=== PATIENT | female | born 1950 | race Caucasian/White ===

== ENCOUNTER 2017-10-03 11:23 | Inpatient (IN) | payer OTHER ==
[2017-10-03 12:54] LABS: ALANINE AMINOTRANSFERASE 21 IU/L (13-69); ALBUMIN 4.5 g/dl (3.3-4.9); ALBUMIN/GLOBULIN RATIO 1.12; ALKALINE PHOSPHATASE 127 IU/L (42-121); ANION GAP 21 (8-16); ASPARTATE AMINO TRANSFERASE 22 IU/L (15-46); BILIRUBIN,INDIRECT 0.2 mg/dl (0-1.1); BILIRUBIN,TOTAL 0.2 mg/dl (0.2-1.3); BLOOD UREA NITROGEN 34 mg/dl (7-20); CALCIUM 10.6 mg/dl (8.4-10.2); CARBON DIOXIDE 20 mmol/L (21-31); CHLORIDE 108 mmol/L (97-110); CREATININE 1.59 mg/dl (0.44-1.00); GLUCOSE 79 mg/dl (70-220); POTASSIUM 4.7 mmol/L (3.5-5.1); SODIUM 144 mmol/L (135-144); TOTAL PROTEIN 8.5 g/dl (6.1-8.1)
[2017-10-03] MEDS ORDERED: SUCCINYLCHOLINE CHLORIDE 100 MG/5 ML SYG IV (14:05)
[2017-10-03] MEDS ORDERED: GLYCOPYRROLATE 0.4 MG INJ ×2 (14:05→19:32)
[2017-10-03] MEDS ORDERED: LIDOCAINE 2% (SDV) 5 ML INJ (14:05)
[2017-10-03] MEDS ORDERED: PROPOFOL 20 ML (14:05)
[2017-10-03] MEDS ORDERED: NEOSTIGMINE 3 MG/3 ML SYRINGE (14:05)
[2017-10-03] MEDS ORDERED: ROCURONIUM 50 MG INJ ×2 (14:05→17:42)
[2017-10-03] MEDS ORDERED: MEPERIDINE 100 MG INJ (14:05)
[2017-10-03] MEDS ORDERED: CEFAZOLIN 1 GM INJ (15:55)
[2017-10-03] MEDS: POLYMYXIN/BACITRACIN 1L IRRIG (16:07)
[2017-10-03] MEDS ORDERED: METOCLOPRAMIDE 10 MG INJ (18:47)
[2017-10-03] MEDS ORDERED: ONDANSETRON 4 MG INJ ×2 (18:47→20:56)
[2017-10-03] MEDS ORDERED: EPHEDrine SULFATE 50 MG/5 ML SYG (20:14)
[2017-10-03] MEDS ORDERED: FENTAnyl 50 MCG/ML VIAL (20:56)
[2017-10-03] MEDS ORDERED: EPHEDrine SULFATE 50 MG/5 ML SYG IV (21:00)
[2017-10-03] MEDS ORDERED: HYDROmorphONE (0.2 MG/ML) 10ML SYG IV ×2 (21:00)
[2017-10-03] MEDS ORDERED: hydrALAzine 20 MG INJ IV (21:00)
[2017-10-03] MEDS ORDERED: OXYCODONE/ACETAMINOPHEN (5/325) TAB PO ×2 (21:00)
[2017-10-03] MEDS ORDERED: DIPHENHYDRAMINE 50 MG INJ IV (21:00)
[2017-10-03] MEDS ORDERED: FENTAnyl 50 MCG/ML VIAL IV ×2 (21:00)
[2017-10-03] MEDS ORDERED: MEPERIDINE 25 MG INJ IV (21:00)
[2017-10-03] MEDS ORDERED: MIDAZOLAM 1 MG/ML 2 ML INJ IV (21:00)
[2017-10-03] MEDS ORDERED: METOCLOPRAMIDE 10 MG INJ IV (21:00)
[2017-10-03] MEDS ORDERED: LABETALOL HCL 20MG INJ IV (21:00)
[2017-10-03] MEDS: FENTAnyl 50 MCG/ML VIAL IV ×2 (21:01→21:06)
[2017-10-03] MEDS: ONDANSETRON 4 MG INJ IV (21:01)
[2017-10-03] MEDS: HYDROmorphONE (0.2 MG/ML) 10ML SYG IV ×5 (21:06→22:09)
[2017-10-03 21:20] LABS: ADD MAN DIFF? NO
[2017-10-03 21:24] LABS: WHITE BLOOD COUNT 9.8 10^3/ul (4.8-10.8)
[2017-10-03 21:24] LABS: BASOPHILS % 0.3 % (0.0-2.0); EOSINOPHILS # 0.1 10^3/ul (0.0-0.5); EOSINOPHILS % 0.7 % (0.0-7.0); HEMATOCRIT 30.4 % (37.0-47.0); HOLD TRANSMISSIONS 1; LYMPHOCYTES # 1.9 10^3/ul (0.8-2.9); LYMPHOCYTES % 19.3 % (15.0-51.0); MEAN CORPUSCULAR HEMOGLOBIN 31.2 pg (29.0-33.0); MEAN CORPUSCULAR HGB CONC 32.2 g/dl (32.0-37.0); MEAN CORPUSCULAR VOLUME 96.8 fl (82.0-101.0); MEAN PLATELET VOLUME 10.4 fl (7.4-10.4); MONOCYTE # 0.4 10^3/ul (0.3-0.9); MONOCYTES % 4.3 % (0.0-11.0); NEUTROPHIL # 7.4 10^3/ul (1.6-7.5); NEUTROPHILS % 74.9 % (39.0-77.0); PLATELET COUNT 265 10^3/UL (140-415); RED BLOOD COUNT 3.14 10^6/ul (4.20-5.40); RED CELL DISTRIBUTION WIDTH 14.5 % (11.5-14.5)
[2017-10-03 21:38] LABS: HEMOGLOBIN 9.8 g/dl (12.0-16.0)
[2017-10-03] MEDS: CEFAZOLIN 1 GM/50 ML (PMX) 50 ML IVPB (21:41)
[2017-10-03 21:52] LABS: ANION GAP 14 (8-16); CARBON DIOXIDE 17 mmol/L (21-31); CHLORIDE 109 mmol/L (97-110); GLUCOSE 111 mg/dl (70-220)
[2017-10-03 21:54] LABS: BLOOD UREA NITROGEN 31 mg/dl (7-20); CALCIUM 8.8 mg/dl (8.4-10.2); CREATININE 1.53 mg/dl (0.44-1.00); POTASSIUM 4.4 mmol/L (3.5-5.1); SODIUM 136 mmol/L (135-144)
[2017-10-03] MEDS: SOD CHLORIDE 0.9% 1,000 ML IV (22:55)
[2017-10-03] MEDS: morphine 4 MG/ML VIAL IV (22:59)
[2017-10-04] MEDS: HYDROCODONE/APAP (5/325) TAB PO ×3 (00:58→23:43)
[2017-10-04] MEDS: HYDROmorphONE 1 MG/ML SYG IV ×4 (01:32→08:42)
[2017-10-04] MEDS: CEFAZOLIN 1 GM/50 ML (PMX) 50 ML IVPB ×2 (05:07→13:01)
[2017-10-04] MEDS: SOD CHLORIDE 0.9% 1,000 ML IV ×2 (06:53→09:28)
[2017-10-04] MEDS: HYDROmorphONE 2 MG/ML SYG IV ×3 (09:47→20:30)
[2017-10-04] MEDS ORDERED: HYDROmorphONE 2 MG TAB PO (10:00)
[2017-10-04] MEDS: CELECOXIB 100 MG CAP PO ×2 (12:57→21:26)
[2017-10-04] MEDS: THIAMINE 100 MG TAB PO (12:58)
[2017-10-04] MEDS: HYDROmorphONE 2 MG TAB PO ×2 (14:00→15:48)
[2017-10-04] MEDS ORDERED: HYDROmorphONE 2 MG/ML SYG IV (16:30)
[2017-10-05] MEDS: HYDROmorphONE 2 MG/ML SYG IV ×7 (00:14→19:55)
[2017-10-05] MEDS: SOD CHLORIDE 0.9% 1,000 ML IV ×2 (02:55→14:13)
[2017-10-05] MEDS: THIAMINE 100 MG TAB PO (08:01)
[2017-10-05] MEDS: CELECOXIB 100 MG CAP PO ×2 (08:01→19:55)
[2017-10-05] MEDS: LACTATED RINGER'S 500 ML IV (11:45)
[2017-10-05] MEDS: DIPHENHYDRAMINE 50 MG CAP PO (20:04)
[2017-10-06] MEDS: HYDROmorphONE 2 MG/ML SYG IV ×7 (00:33→19:13)
[2017-10-06 06:08] LABS: ANION GAP 15 (8-16); BLOOD UREA NITROGEN 13 mg/dl (7-20); CALCIUM 9.1 mg/dl (8.4-10.2); CARBON DIOXIDE 22 mmol/L (21-31); CHLORIDE 108 mmol/L (97-110); CREATININE 0.97 mg/dl (0.44-1.00); GLUCOSE 94 mg/dl (70-220); POTASSIUM 4.3 mmol/L (3.5-5.1); SODIUM 141 mmol/L (135-144)
[2017-10-06] MEDS: CELECOXIB 100 MG CAP PO ×2 (09:00→21:16)
[2017-10-06] MEDS: THIAMINE 100 MG TAB PO (09:00)
[2017-10-06] MEDS: DIPHENHYDRAMINE 50 MG CAP PO ×2 (16:06→16:13)
[2017-10-06] MEDS: HYDROCODONE/APAP (5/325) TAB PO (16:51)
[2017-10-06] MEDS: hydrALAzine 20 MG INJ IV (16:56)
[2017-10-06] MEDS: BENAZEPRIL 20 MG TAB PO (17:00)
[2017-10-06] MEDS: METOPROLOL (XL) 50 MG TAB PO (17:00)
[2017-10-06] MEDS: traZODone 100 MG TAB PO (21:16)
[2017-10-06] MEDS: GABAPENTIN 300 MG CAP PO (21:16)
[2017-10-07] MEDS: BENAZEPRIL 20 MG TAB PO (08:20)
[2017-10-07] MEDS: CELECOXIB 100 MG CAP PO (08:21)
[2017-10-07] MEDS: METOPROLOL (XL) 50 MG TAB PO (08:21)
[2017-10-07] MEDS: THIAMINE 100 MG TAB PO (08:22)
[2017-10-07] MEDS: HYDROmorphONE 2 MG/ML SYG IV (08:22)
[2017-10-07] MEDS: HYDROCODONE/APAP (5/325) TAB PO (13:36)
== END 2017-10-07 16:55 | disposition home health service (06) | DRG 493 ==
LOC: REC 11:23 → MS1 22:20
PROC: 0QSJ06Z Reposition Right Fibula with Intramedullary Internal Fixation Device, Open Approach (ICD-10-PCS; principal; 2017-10-03 14:00)
PROC: 0QSG06Z Reposition Right Tibia with Intramedullary Internal Fixation Device, Open Approach (ICD-10-PCS; 2017-10-03 14:00)
DX: S82.301 Unspecified fracture of lower end of right tibia (principal); N18.4 Chronic kidney disease, stage 4 (severe); I12.9 Hypertensive chronic kidney disease with stage 1 through stage 4 chronic kidney disease, or unspecified chronic kidney disease; S82.831P Other fracture of upper and lower end of right fibula, subsequent encounter for closed fracture with malunion; K80.20 Calculus of gallbladder without cholecystitis without obstruction; F10.21 Alcohol dependence, in remission; X58.XXXD Exposure to other specified factors, subsequent encounter; M81.0 Age-related osteoporosis without current pathological fracture; M46.97 Unspecified inflammatory spondylopathy, lumbosacral region; Z87.891 Personal history of nicotine dependence
CPT/HCPCS: 73590; 80048; 80053; 82962; 85025; 88300; 97110; 97116; 97162; 97530